=== PATIENT | female | born 1935 | race Caucasian/White ===

== ENCOUNTER 2019-01-24 06:35 | Emergency (ER) | payer OTHER ==
[~2019-01-24] VITALS: Ht 165.1 cm; Wt 59.0 kg
[2019-01-24 08:19] LABS: Eosinophils # (auto) 0 uL; Mean Corpuscular Hgb Conc. 30.2 g/dL (32.0-36.0); White Blood Cell 7.2 10^3/uL (4.4-10.8)
[2019-01-24 08:21] LABS: Basophils # (auto) 0 uL; Basophils % (auto) 0.4 % (0.0-2.0); Eosinophils % (auto) 0.6 % (0.0-7.0); Hematocrit 35.1 % (36.0-46.0); Hemoglobin 10.6 g/dL (12.2-16.2); Lymphocytes # (auto) 2.2 uL; Lymphocytes % (auto) 30.8 % (10.0-50.0); Mean Corpuscular Hemoglobin 19.9 pg (28.0-32.0); Mean Corpuscular Volume 66.1 fL (80.0-100.0); Monocytes # (auto) 0.4 uL; Monocytes % (auto) 6.1 % (0.0-12.0); Neutrophils # (auto) 4.5 uL; Neutrophils % (auto) 62.1 % (37.0-80.0); Platelet Count (auto) 564 10^3/uL (140-450); Red Blood Cells 5.32 10^6/uL (4.0-5.20)
[2019-01-24 08:34] LABS: Albumin 2.9 g/dL (3.4-5.0); Calcium 8.3 mg/dL (8.5-10.1); Potassium 3.4 mmol/L (3.5-5.1)
[2019-01-24 08:48] LABS: Red Cell Distribution Width 30.7 % (11.8-14.3)
[2019-01-24 09:33] LABS: BUN/Creatinine Ratio 26.3; Bilirubin, Total 0.5 mg/dL (0.2-1.0); Total Protein 6.9 g/dL (6.4-8.2)
[2019-01-24 12:06] LABS: Urine Bacteria MANY /hpf (None Seen); Urine Blood 1+ /uL (Negative); Urine Specific Gravity 1.019 (1.001-1.035); Urine WBC 35 /hpf (0 - 5)
[2019-01-24] MEDS ORDERED: cefTRIAXone 1GM/50ML D5W 50 ML IV ONE (12:30)
[2019-01-24 13:04] VITALS: BP 121/72
== END 2019-01-24 13:15 | disposition home or self-care (01) ==
LOC: ER 06:35 → EDBD 06:35 → ER 13:15
DX: N39.0 Urinary tract infection, site not specified (principal); Z86.39 Personal history of other endocrine, nutritional and metabolic disease
CPT/HCPCS: 36415; 74176; 80053; 81001; 82150; 83690; 85025; 93005; 96365; 99284; J0696